=== PATIENT | male | born 1985 | race Two or more races ===

== ENCOUNTER 2023-12-14 13:50 | Emergency (ER) | payer BC, OTHER ==
[~2023-12-14] VITALS: Ht 175.3 cm; Wt 85.9 kg
[2023-12-14] MEDS: LIDOCAINE VISCOUS 2% 15ML UD MT ONE (14:56)
[2023-12-14] MEDS: MAALOX PLUS or MAALOX 30 ML PO ONE (14:57)
[2023-12-14] MEDS: FAMOTIDINE 20 MG TAB PO ONE (14:57)
[2023-12-14] MEDS: ACETAMINOPHEN 325 MG TAB PO ONE (14:57)
[2023-12-14 14:59] LABS: Basophils # (auto) 0 10 ^3/uL (0-0.2); Basophils % (auto) 0.6 % (0.0-2.0); Eosinophils # (auto) 0.2 10 ^3/uL (0-0.8); Eosinophils % (auto) 2.4 % (0.0-7.0); Hematocrit 47.5 % (41.0-53.0); Hemoglobin 16.6 g/dL (13.5-17.5); Lymphocytes # (auto) 2.5 10 ^3/uL (0.4-5.4); Lymphocytes % (auto) 37.4 % (10.0-50.0); Mean Corpuscular Hemoglobin 31.2 pg (28.0-32.0); Mean Corpuscular Volume 89.3 fL (80.0-100.0); Monocytes # (auto) 0.4 10 ^3/uL (0-1.3); Monocytes % (auto) 6.7 % (0.0-12.0); Neutrophils # (auto) 3.5 10 ^3/uL (1.6-8.6); Neutrophils % (auto) 52.9 % (37.0-80.0); Nucleated Red Blood Cells % 0.1 %; Red Blood Cells 5.32 10^6/uL (4.5-5.90); White Blood Cell 6.6 10^3/uL (4.4-10.8)
[2023-12-14 15:21] LABS: INR 1.03 (0.9-1.15); Partial Thromboplastin Time 26.7 SEC (24.5-34.5); Prothrombin Time 10.9 sec (9.3-11.8)
[2023-12-14 15:38] LABS: Alanine Aminotransferase 75 U/L (7-40); Albumin 4.9 g/dL (3.2-4.8); Alkaline Phosphatase 91 U/L (46-116); Anion Gap 13 (5-15); Aspartate Aminotransferase 41 U/L (13-40); BUN/Creatinine Ratio 10.7 (10.0-20.0); Blood Urea Nitrogen 11 mg/dL (9-23); Calcium 10.5 mg/dL (8.7-10.4); Carbon Dioxide 20 mmol/L (20-30); Chloride 105 mmol/L (98-107); Glucose 129 mg/dL (74-106); Potassium 3.7 mmol/L (3.5-5.1); Sodium 138 mmol/L (136-145); Total Protein 8.4 g/dL (5.7-8.2)
[2023-12-14 15:52] LABS: Bilirubin, Total 1.2 mg/dL (0.2-1.0)
[2023-12-14 16:02] LABS: Urine Bacteria None Seen /hpf (None Seen)
[2023-12-14 16:28] LABS: Urine Blood 1+ /uL (Negative); Urine Clarity Clear (Clear); Urine Color Yellow (Yellow); Urine Mucus FEW (None Seen); Urine Protein, UAD 1+ (Negative); Urine Specific Gravity 1.027 (1.001-1.035); Urine Urobilinogen Normal (Negative); Urine WBC 1 /hpf (0 - 3); Urine pH 5.5 (5.0-9.0)
[2023-12-14] MEDS ORDERED: LIDO2SOL26 MT (17:15)
[2023-12-14] MEDS ORDERED: MAA30LQ GT (17:15)
[2023-12-14] MEDS ORDERED: FAMO20TA10 PO (17:15)
[2023-12-14] MEDS ORDERED: AMOX500T86 PO (17:16)
[2023-12-14] MEDS ORDERED: CLAR1TAB21 PO (17:16)
[2023-12-14 17:36] VITALS: BP 143/102; PULSE 85; RESP 17; TEMP 98.7; O2SAT 96
== END 2023-12-14 17:38 | disposition home or self-care (01) ==
LOC: ER 13:50
DX: K25.9 Gastric ulcer, unspecified as acute or chronic, without hemorrhage or perforation (principal); K64.9 Unspecified hemorrhoids
CPT/HCPCS: 36415; 80053; 81001; 85025; 85610; 85730